=== PATIENT | female | born 1955 | race Caucasian/White ===

== ENCOUNTER 2020-01-18 10:31 | Emergency (ER) | payer MEDICARE, OTHER, SELFPAY ==
[2020-01-18] VITALS (14 sets, daily range): BP systolic 91–227; BP diastolic 40–118; PULSE 82–156; RESP 12–24; TEMP 36.6–37.2; O2SAT 70–100; BMI 32.3; BMI 33.3
--- NOTE | 2020-01-18 10:34 | ECG_ITS ---
APPROVED REPORT Exam: Resting ECG HR:120 bpm ECG Measurements Heart Rate 120 AXES LA 180 P 50 QRSd 104 QRS 75 QT 302 T 57 QTc 426 <Conclusion> Sinus tachycardia with premature atrial complexes Motion Artifact Nonspecific ST abnormality Abnormal ECG Electronically signed by : Jordan Urban, 01/18/2020 17:50:55
--- NOTE | 2020-01-18 11:05 | XR_ITS ---
PROCEDURE: XR CHEST PORTABLE CLINICAL HISTORY: post intubation Respiratory failure, code blue COMPARISON: CTAC CTA-CHEST from 03/20/2014 FINDINGS: 11:06 a.m.. Endotracheal tube tip is in good position 4 cm above the yoseph at the T3-T4 level. Cardiomegaly. Pulmonary venous congestion and interstitial edema consistent with CHF Alveolar opacification right upper lobe right lower lobe and left upper lobe which could be due to edema or pneumonia. Overlying artifact from supporting devices. Diffuse subcutaneous air noted in the right chest wall and neck. The mediastinum is widened. IMPRESSION: 1. Good position of endotracheal tube. 2. CHF with pulmonary edema or pneumonia and mildly widened mediastinum 3. Subcutaneous emphysema Dictated by: Josesito Ansari MD 01/18/2020 12:22 Electronically signed by Josesito Ansari MD in [place] 01/18/2020 12:23
--- NOTE | 2020-01-18 11:18 | ECG_ITS ---
APPROVED REPORT Exam: Resting ECG HR:111 bpm ECG Measurements Heart Rate 111 AXES OR 166 P 69 QRSd 96 QRS 110 QT 332 T 89 QTc 451 <Conclusion> Sinus tachycardia with premature supraventricular complexes Possible Left atrial enlargement Right axis deviation ST depression, consider subendocardial injury or digitalis effect Abnormal ECG Electronically signed by : Jordan Urban, 01/18/2020 17:47:56
[2020-01-18 11:26] LABS: Microscopic, Urine URINE MICROSCOPIC (MICROSCOPIC)
[2020-01-18 11:29] LABS: Appearance,Urine CLEAR (Clear); Bilirubin,Urine Negative (Negative); Blood, Urine 2+ (Negative); Color,Urine YELLOW (Yellow); Glucose,Urine (UA) 3+ (Negative); Ketones,Urine Negative (Negative); Leukocyte Esterase,Urine Negative (Negative); Nitrate,Urine Negative (Negative); Protein,Urine 2+ (Negative); Urobilinogen,Urine 0.2 EU/dl (0.2)
[2020-01-18 11:37] LABS: ABG Base Excess -11.4 mmol/L (-2.4-2.3); ABG HCO3 18.6 mmhg (22.0-26.0); ABG Oxygen Saturation 95 % (90-100); ABG PO2 103.5 mmhg (80-100); ABG TCO2 20.6 mmhg (23-27)
[2020-01-18 11:39] LABS: Barbiturates Screen,Urine Negative ng/ml (<200)
[2020-01-18 11:40] LABS: Amphetamine/Metha Screen,Urine Negative ng/ml (<1000); Benzodiazepines Screen,Urine Negative ng/ml (<200)
[2020-01-18 11:41] LABS: Cannabinoid Screen,Urine Negative ng/ml (<50)
[2020-01-18 11:41] LABS: Oxygen 50% %; Tidal Volume 400; Vent Rate 18
[2020-01-18 11:42] LABS: Allen's Test Patient Unable; PEEP 5; Source Right Radial
[2020-01-18 11:42] LABS: Bacteria,Urine 1+ /lpf; Cocaine Screen,Urine Negative ng/ml (<300); Methadone Screen,Urine Negative ng/ml (<300)
[2020-01-18 11:43] LABS: Opiate Screen,Urine Negative ng/ml (<300)
[2020-01-18 11:43] LABS: ABG PCO2 64.9 mmhg (35.0-45.0); ABG PH 7.08 mmol/L (7.35-7.45)
[2020-01-18 11:44] LABS: Phencyclidine Screen,Urine Negative ng/ml (<25)
[2020-01-18 12:04] LABS: Basophils # 0.2 K/mm3 (0-0.2); Eosinophils # 0.3 K/mm3 (0.0-0.4); Hematocrit 29.7 % (37.0-47.0); Hemoglobin 9.3 g/dL (12.2-16.2); Lymphocytes # 5.7 K/mm3 (0.7-4.5); Lymphocytes % 36.6 % (10-50); Mean Corpuscular HGB Conc 31.1 g/dL (31.8-35.4); Mean Corpuscular Hemoglobin 26.3 pg (27.0-31.2); Mean Corpuscular Volume 84.6 fl (81-99); Mean Platelet Volume 10.4 fl (7.4-10.4); Monocytes # 0.5 K/mm3 (0.1-1.0); Monocytes % 3.2 % (1.7-9.3); Neutrophils % 57.2 % (37.0-80.0); Platelet Count 237 K/mm3 (142-424); Red Blood Count 3.51 M/mm3 (4.20-5.40); Red Cell Distribution Width 14.9 % (11.5-17.5); White Blood Count 15.7 K/mm3 (4.8-10.8)
[2020-01-18 12:08] LABS: MANUAL DIFFERENTIAL MANUAL DIFFERENTIAL (MANUAL DIFF)
--- NOTE | 2020-01-18 12:08 | PC.NURSE ---
Placed call to [facility] waiting for DR Mcintyre
[2020-01-18 12:12] LABS: Adenovirus,PCR Not Detected (NotDetected); Bordetella Pertussis Not Detected (NotDetected); Chlamydophila Pneumoniae, PCR Not Detected (NotDetected); Coronavirus 19, PCR Not Detected (NotDetected); Coronavirus 229E Not Detected (NotDetected); Coronavirus NL63 Not Detected (NotDetected); Coronavirus OC43 Not Detected (NotDetected); Coronovirus HKU1,PCR Not Detected (NotDetected); Human Metapneumovirus Not Detected (NotDetected); Influenza A, PCR Not Detected (NotDetected); Influenza AH1, 2009 Not Detected (NotDetected); Influenza AH1, PCR Not Detected (NotDetected); Influenza AH3,PCR Not Detected (NotDetected); Influenza B, PCR Not Detected (NotDetected); Mycoplasma Pneumoniae, PCR Not Detected (NotDected); Parainfluenza 1, PCR Not Detected (NotDetected); Parainfluenza 2, PCR Not Detected (NotDetected); Parainfluenza 3, PCR Not Detected (NotDetected); Parainfluenza 4, PCR Not Detected (NotDetected); Respiratory Syncytial Virus Not Detected (NotDetected); Rhinovirus/Enterovirus Not Detected (NotDetected)
--- NOTE | 2020-01-18 12:14 | PC.NURSE ---
quality control assessor called back, they have no beds at this time
[2020-01-18 12:18] LABS: Chloride 99 mmol/L (98-107); Potassium 4.8 mmoL/L (3.5-5.1); Sodium 134 mmol/L (136-145)
[2020-01-18 12:21] LABS: Alanine Aminotransferase 88 U/L (12-78); Albumin Level 3.1 g/dl (3.5-5.0); Albumin/Globulin Ratio 1.3 (1.1-1.8); Alkaline Phosphatase 172 U/L (38-126); Anion Gap 21.8 mEq/L (5-15); Aspartate Amino Transferase 175 U/L (14-36); Bilirubin,Total 0.4 mg/dl (0.2-1.3); Blood Urea Nitrogen 25 mg/dl (7-17); Carbon Dioxide 18 mmol/L (22.0-30.0); Creatinine Clearance Estimated 50 mL/min (50-200); Estimated Glomerular Filt Rate 32 ml/min (>60); GFR (African American) 39 ML/MIN (>60); Globulin 2.4 g/dL (1.3-3.2); Total Protein,Serum 5.5 g/dl (6.3-8.2)
[2020-01-18 12:22] LABS: Calcium 7.7 mg/dl (8.4-10.2); Eosinophils % 1 % (0-3); Lymphocytes % 35 % (10-50); Monocytes % 2 % (2-9); Neutrophils % 59 % (42-76); RBC Morphology Normal; Total Cells Counted 100
--- NOTE | 2020-01-18 12:22 | PC.NURSE ---
Gave family an update at this time
[2020-01-18 12:23] LABS: Hypochromasia 1+; Platelet Estimate Normal
[2020-01-18 12:30] LABS: Ethyl Alcohol < 10 mg/dl (0-10); Glucose 498 mg/dl (74-100)
--- NOTE | 2020-01-18 12:35 | PC.NURSE ---
calling [facility] for transfer
[2020-01-18 12:36] LABS: Troponin I 0.01 ng/ml (0.00-0.034)
--- NOTE | 2020-01-18 13:17 | PC.NURSE ---
pt and trevor at pt bs at this time
--- NOTE | 2020-01-18 13:22 | PC.NURSE ---
Respiratory Care Note 1140 Pts cuff wouldn't stay inflated. Spoke with Dr Castellanos and he agreed that the airway should be changed. Intubation tube replaced with another 7.0 tube, with use of a Boojie airway. 24(L) at placement and cuff pressures remain the same. No issues.
--- NOTE | 2020-01-18 14:09 | PC.NURSE ---
CB called for update stated Dr arauz would call back as soon as he could.
--- NOTE | 2020-01-18 14:13 | PC.NURSE ---
DR MOREL JUST SPOKE WITH DR MASON AT [facility] HE HAS ACCEPTED PT WE ARE JUST WAITING ON BED PLACEMENT
--- NOTE | 2020-01-18 15:00 | PC.NURSE ---
ER notified of pt lactic acid level. Pt has a reported hx of chf, ER states no to sepsis fluid bolus on pt.
[2020-01-18 15:19] LABS: Lactic Acid 7.9 mmol/L (0.7-2.1)
--- NOTE | 2020-01-18 15:19 | PC.NURSE ---
CRITICAL LAB RELAYED TO OF LACTATE OF 7.9
[2020-01-18 15:25] LABS: Troponin I 0.13 ng/ml (0.00-0.034)
--- NOTE | 2020-01-18 15:52 | PC.NURSE ---
called rupesh in pharmacy for another bag for versed infusion
--- NOTE | 2020-01-18 15:59 | [facility].EDCPR ---
ED Disposition Clinical Impression: Cardiac arrest, Acute respiratory failure, Sepsis associated hypotension, [employer]ER HELPER anomaly Disposition: Xfer Short-Term Hosp Condition on Discharge: Critical Instructions: Cardiac Arrest Referrals: Lakeshia Freed [Primary Care Provider] - - Critical Care Critical Care Time: Yes Attestation: On 01/18/20, the high probability of a clinically significant, sudden or life threatening deterioration of the following system(s) required my full and direct attention, intervention and personal management. The time I documented below is in addition to time spent performing reported procedures but includes the following listed in this critical care notation. Total Critical Care Time: 150 Vital system(s) involved:: Circulatory Failure, Central Nervous System, Metabolic Failure, Respiratory Failure, Shock (Septic) My critical care processes included: Assessment & monitoring of V/S, Initial and Re-exams, Data Review/Interpretation, Coordinating Care, Medication Orders and management, Documentation [facility] Code Documentation - Arrest Information Outside of Hospital The Code Document Section documentation for [id number] Nina Pride was populated with data that defaulted in from the catcher filter tip in the Code Assessment on f_Reg Service Date] to provide within this report, the status and treatment of the patient in the ED during a Code. This documentation will be supplemented with my direct findings within the body of the report. Date Treatment Initiated: 01/18/20 Time Treatment Initiated: 10:17 Treatment Initiated By: EMS Location of Arrest: [facility] Arrest Witnessed: Yes Estimated Down Time: 7 MIN - Arrest Information in Hospital Date of Arrest: 01/18/20 Time of Arrest: 11:31 Location of Arrest In-house: Emergency Department Type of Arrest In-house: Respiratory In-house Arrest Witnessed: Yes - Unmonitored Last Seen Well: 1100 - ALS Code Inititation ALS Initiated By: EMS ALS Type: ACLS ALS Initiated Start Time: 10:17 - Patient Condition At Code Start Condition of Patient at Start of Code: Pulseless, Apneic, Unconscious Monitoring Devices: ECG Monitor, Pulse Oximeter - Circulation Initial Cardiac Rhythm: Asystole - Oxygenation Oxygen Breathing Status: Assisted - Labs Specimens collected: Blood, Blood Culture x 2 - Procedures ABG's Drawn: Yes Labs Drawn: Yes - Assisted Ventilation ETT Insertion Time: 11:10 ETT Size: 7.0 ETT Insertion Site: Oral Endotracheal ETT Position at Lip: 22 ETT Tube Inserted By: Dr Castellanos - Code End Time Code Ended: 10:52 Patient Successfully Resuscitated: Yes Reason Code Ended: Survived - Return of Circulation > 20 minutes Family Members Present During Code: Yes (AWAITING IN TRIAGE ROOM) - Mental Status Eye Opening: None Motor Response: None Verbal Response: None Coma scale total: 3 Medical Decision Making - Medical Records Medical records reviewed: Yes: I reviewed the patient's medical records. - [place] Inquiry Pt receiving controlled substance: No Vital Signs: 01/18/20 10:32 01/18/20 10:33 01/18/20 10:56 Temperature 97.9 F Temperature Source Rectal Pulse Rate [Right] 124 H 108 H 156 H Respiratory Rate 18 14 Blood Pressure [Right Arm] 107/69 L 118/40 L 227/118 H Blood Pressure Mean [Right Arm] 81 66 154 Blood Pressure Source [Right Arm] Automatic Cuff Automatic Cuff Automatic Cuff Blood Pressure Position [Right Arm] 02 Sat by Pulse Oximetry 100 100 100 Oxygen Delivery Method Mechanical Ventilation Ambu-Bag Ambu-Bag Oxygen Flow Rate (LPM) 15 01/18/20 10:59 01/18/20 11:04 01/18/20 11:08 Temperature Temperature Source Pulse Rate [Right] 150 H 134 H 126 H Respiratory Rate 12 12 12 Blood Pressure [Right Arm] 202/99 H 152/72 H 139/63 Blood Pressure Mean [Right Arm] 133 98 88 Blood Pressure Source [Right Arm] Automatic Cuff Automatic Cuff Automatic Cuff Blood Pressure Position [Right Arm] 02 Sat by Pulse
[2020-01-18 16:14] LABS: INR 1.01 (0.9-1.1); Prothrombin Time 10.4 seconds (9.4-11.8)
[2020-01-18 16:15] LABS: Activated Partial Thrombo Time 21.8 seconds (23.6-34.0)
[2020-01-18 19:01] LABS: Reflex Lactic Add Lactic Reflex
[2020-01-19 03:44] LABS: POC Glucose,Bedside 506 (70-110)
--- NOTE | 2020-01-22 12:51 | PC.NURSE ---
sputum culture results faxed to [facility].
[2020-02-12 09:31] LABS: POC Glucose,Bedside 461 (70-110)
== END 2020-01-18 16:53 | disposition short-term general hospital (02) ==
PROVIDERS: Emergency Provider Family Medicine; PCP Nurse Practitioner Family
DX: I46.9 Cardiac arrest, cause unspecified (principal); J96.00 Acute respiratory failure, unspecified whether with hypoxia or hypercapnia; E11.65 Type 2 diabetes mellitus with hyperglycemia; I95.9 Hypotension, unspecified; Z91.040 Latex allergy status; Z88.1 Allergy status to other antibiotic agents; Z79.899 Other long term (current) drug therapy; R82.90 Unspecified abnormal findings in urine
CPT/HCPCS: 31500; 36415; 71045; 80053; 80305; 81001; 82803; 82962; 83605; 84484; 85007; 85025; 85610; 85730; 87040; 87070; 87077; 87086; 87186; 87205; 87581; 87633; 87798; 93005; 93041; 96365; 96367; 96375; 99291